=== PATIENT | male | born 1970 | race Two or more races ===

== ENCOUNTER 2016-06-18 13:35 | Emergency (ER) | payer OTHER ==
[~2016-06-18] VITALS: Ht 190.5 cm; Wt 120.2 kg
[2016-06-18] MEDS ORDERED: fentaNYL 100 mcg/2 mL IV ONE ×2 (14:15→15:45)
[2016-06-18] MEDS ORDERED: Ketorolac 30mg Inj IM ONE (14:15)
[2016-06-18 14:45] LABS: APPEARANCE,URINE CLEAR; KETONES,URINE NEGATIVE (NEGATIVE); LEUKOCYTE ESTERASE ,URINE NEGATIVE (NEGATIVE); NITRITE,URINE NEGATIVE (NEGATIVE); PH,URINE 5 (4.5-8.0); PROTEIN,URINE NEGATIVE (NEGATIVE); UROBILINOGEN,URINE NORMAL MG/DL (0.0-1.0)
[2016-06-18] MEDS ORDERED: Ketorolac 30mg Inj IV ONE (15:00)
--- NOTE | 2016-06-18 15:08 | Emergency Room Report ---
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 A month ago he was assisting the cable [place] patient up into helicopter. At that time he felt a pop in his back. He didn't seek medical care at that time but took ibuprofen and got better. Yesterday at 11:00 he was pulling the cable into the helicopter with the patient on it and felt it pop again. This time it was worse. He has pain in his was taking Motrin. The pain kept him awake last night. He feels muscle spasms and also pain radiating into his groin and also slightly to his right leg. The pain is 8/10, burning and aching with muscle spasms. Constant. Nitroglycerin didn't help. He denies dysuria, fever, incontinence, saddle numbness. The patient does not take any blood thinners. He denies previous back problems. Strength was weak at this time. Allergies: Coded Allergies: No Known Allergies (Unverified , 06/18/16) Patient History Past Medical History: see triage record Social History: Denies: smoking Social History Narrative - [facility] Gambling [employer] on helicopter Reviewed Nursing Documentation: PMH: Agreed, PSxH: Agreed Nursing Documentation-[facility] Past Medical History: No Stated History Review of Systems All Other Systems: negative except mentioned in HPI Physical Exam Vital Signs Date Time Temp Pulse Resp B/P Pulse Ox O2 Delivery O2 Flow Rate FiO2 06/18/16 13:41 97.7 56 14 119/57 98 Room Air Sp02 EP Interpretation: reviewed, normal General Appearance: well appearing, no apparent distress, GCS 15 Head: normocephalic Eyes: bilateral eye PERRL, bilateral eye normal inspection ENT: moist mucus membranes Neck: supple Respiratory: lungs clear, normal breath sounds Cardiovascular #1: regular rate, rhythm Cardiovascular #2: 2+ radial (R) Gastrointestinal: normal inspection, normal bowel sounds, non tender, no mass, non-distended Musculoskeletal: gait/station normal, normal range of motion, other - Paraspinous spasms with lumbar tenderness. Has pain when he moves to sit for the back on the gurney. Straight leg raise increases pain in his back but not down his legs. Neurologic: alert, oriented x3, motor strength/tone normal, DTRs symmetric, sensory intact Psychiatric: mood/affect normal Reflexes: 2+ knee (R), 2+ knee (L), 2+ ankle (R), 2+ ankle (L) Skin: normal inspection, warm/dry Medical Decision Making Diagnostic Impression: Primary Impression: Lumbar strain Qualified Codes: S39.012A - Strain of muscle, fascia and tendon of lower back , initial encounter ER Course Patient presents with severe back pain. This is radiating somewhat down his right side. Differential includes sprain, strain, disc herniation, muscle spasm amongst others. The pain is severe at this time and we will aggressively pursue control the pain with Toradol and fentanyl. In addition to that relieved performing a CT scan of his lumbar spine. No red flag symptoms or signs. Patient required second dose of fentanyl. CT lumbar spine with DJD, no acute injury. Patient improved. Patient stable for outpatient observation and treatment. Laboratory Tests Test 06/18/16 14:24 Urine Color Pale yellow Urine Appearance Clear Urine pH 5 (4.5-8.0) Urine Specific [place] 1.025 (1.005-1.035) Urine Protein Negative (NEGATIVE) Urine Glucose (UA) Negative (NEGATIVE) Urine Ketones Negative (NEGATIVE) Urine Occult Blood Negative (NEGATIVE) Urine Nitrite Negative (NEGATIVE) Urine Bilirubin Negative (NEGATIVE) Urine Urobilinogen Normal MG/DL (0.0-1.0) Urine Leukocyte Esterase Negative (NEGATIVE) CT/MRI/US Diagnostic Results CT/MRI/US Diagnostic Results : Imaging Test Ordered: lumbar spine Impression some DJD Last Vital Signs Date Time Temp Pulse Resp B/P Pulse Ox O2 Delivery O2 Flow Rate FiO2 06/18/16 16:51 98.1 66 14 136/87 95 Room Air Status: improved Disposition: HOME, SELF-CARE Condition: Improved Scripts Ibuprofen* (MOTRIN*) 600 Mg Tablet 600 MG ORAL Q6H Y for For Pain, #20 TAB Prov: Higinio Tripp M.D. 06/18/16 Methocarbamol* (ROBAXIN*) 500 Mg Tablet 500 MG PO TID, #12 TAB 0 Refills Prov: Higinio Tripp M.D. 06/18/16 Hydrocodone Bit/Acetaminophen 5-325* (NORCO 5-325*) 1 Each Tablet 1 TAB ORAL Q6H Y for For Pain, #10 TAB 0 Refills Prov: Higinio Tripp M.D. 06/18/16 Referrals: NOT CHOSEN DESTINY/,REFERRING (PCP) Higinio Tripp M.D. June 18, 2016 15:08
[2016-06-18 16:13] VITALS: BP 136/87
[2016-06-18] MEDS ORDERED: IBUPROFEN600 MG ORAL (16:20)
[2016-06-18] MEDS ORDERED: ROBAXIN500 MG PO (16:20)
[2016-06-18] MEDS ORDERED: NORCO 5-325 TA1 EACH ORAL (16:20)
[2016-06-18 16:51] VITALS: BP 136/87
--- NOTE | 2016-06-20 10:53 | Diagnostic Imaging Report ---
Indication: Back pain Technique: Continuous helical transaxial imaging of the lumbar spine was obtained from the lung bases to the pubic symphysis. No IV contrast was administered. Coronal 2-D reformats were also obtained. Study obtained in a Siemens sensation [address] Total Dose length Product (DLP): [address] Dose Index Volume (CTDIvol): 21 mGy Comparison: None Findings: There is no evidence of an acute fracture or malalignment. Height and configuration of the vertebral bodies and intervertebral discs are within normal limits. There is minimal endplate spurring. The facets show minimal hypertrophy. There is no soft tissue swelling. Impression: No acute injury. The CT scanner at [facility] is accredited by the [employer] and the scans are performed using protocols designed to limit radiation exposure to as low as reasonably achievable to attain images of sufficient resolution adequate for diagnostic evaluation.
== END 2016-06-18 16:55 | disposition home or self-care (01) ==
LOC: EMR 14:36
DX: S39.012A Strain of muscle, fascia and tendon of lower back, initial encounter (principal); X50.9XXA Other and unspecified overexertion or strenuous movements or postures, initial encounter; Y93.9 Activity, unspecified; Y99.9 Unspecified external cause status; M54.5 Low back pain; M79.604 Pain in right leg; M62.838 Other muscle spasm; M47.896 Other spondylosis, lumbar region
CPT/HCPCS: 72131; 81003; 96374; 96375; 99284; J1885; J3010